=== PATIENT | female | born 1950 | race Caucasian/White ===

== ENCOUNTER 2017-01-09 14:26 | Inpatient (IN) | payer OTHER ==
[~2017-01-09] VITALS: Ht 154.9 cm; Wt 32.0 kg
[2017-01-09] VITALS (7 sets, daily range): BP systolic 141–184; BP diastolic 71–90; PULSE 71–125; RESP 20–28; O2SAT 88–100
--- NOTE | 2017-01-09 14:27 | ED.REPORT ---
HPI-Dyspnea / Wheezing Date of Service Jan 09, 2017 ED Provider: Adarsh Valenzuela MD Pt is a 65 year old female with a history of COPD who presents to the ED via EMS with shortness of breath. She denies pain. Per EMS, the pt's landlord reported that the pt has had her symptoms for 2-3 days. EMS reports that the pt has been resting in her bed when they found her. Per EMS, the pt had inspiratory and expiratory wheeze en route. HPI obtained primary from EMS. Nursing Notes Stated Complaint: COPD EXACERBATION Chief Complaint: Respiratory Distress Nursing Notes Reviewed: Yes General Time Seen by MD: 14:27 Chief Complaint Shortness of breath Hx Obtained From: Patient, EMS Arrived By: Ambulance Sudden in Onset?: No Onset Occurred: 2 days ago Symptom Duration: Since onset Severity: Current: No pain currently Severity: Maximum: No pain Recent Healthcare: No recent doctor visit, No recent hospitalization Past Medical History Past Medical History Reports: COPD Past Surgical History Denies Smoking History Unknown if Ever Smoker Ambulatory Status Independent Review of Systems Respiratory: Reports: Shortness of breath Cardiovascular: Denies: Chest pain Musculoskeletal: Denies: Back pain Complete sys rev & neg: except as marked. GI: Denies: Abdominal pain Physical Exam Initial Vital Signs Vital Signs (First) Date Time Temp Pulse Resp B/P Pulse Ox O2 Delivery O2 Flow Rate FiO2 01/09/17 14:30 125 28 141/71 96 Nasal Cannula Initial VS: Reviewed Head / Eyes: Atraumatic, Normocephalic Extremities: Vascular intact, Neuro intact Skin: Warm, Dry, No cyanosis Neurologic: Alert, Oriented, Nonfocal Psychiatric: Mood/affect normal, Behavior normal General/Constitutional: Awake, Alert Appearance / Presentation: Positive: Cachectic Pt is drowsy. Neck: Atraumatic, Full range of motion Respiratory / Chest: Breath sounds = bilat Diminished breath sounds. No wheezing. Cardiovascular: Regular rhythm, Heart sounds NL, No murmurs Heart Rate / Rhythm: Positive: Tachycardia Abdomen: Atraumatic, Soft, Non-tender Abdomen is tense. Interpretation & Diagnostics Lab Results Interpretation Test 01/09/17 14:35 Re-Eval/Medical Decision Med Decision/Clinical Course Attempting multiple times to talk to this woman about her CODE STATUS is fruitless. All she can safely be alone and do not intubate me. I told her that she would without intubation if she stops breathing and she has no response to this statement. At change of shift I will pass the care to Dr. Solomon in. She has an end-tidal CO2 currently of less than 40 so that is actually much better than I expected. Source of Hx: Old records Re-Evaluation/Progress #1: Time of Eval: 14:45 Re-Evaluation/Progress Note: Pt rechecked. Pt was refusing Bipap and intubation. Spoke with pt regarding her care, but she would not respond. Re-Evaluation/Progress #2: Time of Eval: 14:48 Re-Evaluation/Progress Note: Pt rechecked. Pt states that she doesn't want to be put on a ventilator because she is concerned that she will be stuck on the ventilator chronically. Discussed with pt options of treatment. She states that she wants to be "left alone right now". Pt is requesting to contact her son. Re-Evaluation/Progress #3: Time of Eval: 15:06 Re-Evaluation/Progress Note: Pt rechecked. Pt was talking on the phone with her son. She does not want the bipap. Counseled Regarding: Diagnosis, Lab results Discharge & Departure Shift Change Sign-Out Patient Care Transferred: Yes Discussed Complaint(s): Yes Laboratory Evaluation: Ordered, not yet done Imaging Studies: Ordered, not yet done Impression: Primary Impression: COPD exacerbation Discharge Condition All VS Reviewed: Yes Condition: Stable Referrals: OTHER,PHYSICIAN Care Transferred to: Dr. Leger Care Transferred at: 15:07 Dann Attestation Portions of this note were transcribed by Nyla Malone. I, Dr. Valenzuela personally performed the history, physical exam and medical decision-making; I reviewed and confirmed the accuracy of the information in the transcribed note. Signed by: Dann Adorno, 01/09/17. copies to: OTHER,PHYSICIAN Adarsh Valenzuela MD Jan 09, 2017 14:27 Nyla Armstrong Jan 09, 2017 14:36
[2017-01-09] MEDS ORDERED: Albuterol 2.5 mg/3 mL Inhalation Solution NEB ONE ×2 (14:29→14:30)
[2017-01-09] MEDS ORDERED: MethylprednisoLONE Sodium Succinate 62.5 mg/mL 2 mL Inj ONE (14:45)
[2017-01-09 14:53] LABS: BASOPHILS % (AUTO) 0.1 % (0-3); Mean Corpuscular Volume 99.5 fL (81-100)
[2017-01-09 14:58] LABS: EOSINOPHILS % (AUTO) 0.1 % (0-5); MONOCYTES % (AUTO) 20.9 % (4-12); Mean Corpuscular Hemoglobin 32.3 pg (27.0-35.0); NEUTROPHILS % (AUTO) 69.8 % (40-74); Platelet Count 316 bil/L (150-400)
[2017-01-09] MEDS ORDERED: Magnesium Sulf 2 Gm/50mL Water 2 GM in IV Premix 1 EACH IV ONE (15:20)
[2017-01-09 15:22] LABS: TROPONIN T < 0.010 ug/L (0.0-0.011)
[2017-01-09] MEDS ORDERED: Albuterol-Ipratropium 3 mL Inhalation Solution NEB ONE (15:25)
--- NOTE | 2017-01-09 16:10 | DRSVH ---
PROCEDURE: X-RAY CHEST ONE VIEW, PORTABLE ([id number]) INDICATIONS: dyspnea TECHNIQUE: One view of the chest was acquired. COMPARISON: 05/03/2008 FINDINGS: Surgical changes and devices: Surgical plate lower cervical spine. Surgical clips right upper quadran t.. Lungs and pleura: No pleural effusions or pneumothorax. Lungs are clear. There is severe emphysema. Mediastinum: Mediastinal contours appear normal. Heart size is normal. Bones and chest wall: No suspicious bony lesions. Overlying soft tissues appear unremarkable. IMPRESSION: 1. Severe chronic obstructive pulmonary disease. No acute cardiopulmonary abnormality to suggest aspi ration or pneumonia. Dictated by: Kristian Muñoz M.D. on 01/09/2017 at 16:07 Approved by: Kristian Muñoz M.D. on 01/09/2017 at 16:09
--- NOTE | 2017-01-09 17:19 | ABG ---
DateTimeAnalyzed 17:12:00 -_ pH ____7.269 - 7.350 7.450 pCO2 ___68.9__ -mmHg 35.0 45.0 pO2 ___70.3__ -mmHg 69.0 116 HCO3- ___30.5__ -mmol/L 22.0 26.0 ABE ____2.3__ -mmol/L -2.0 2.0 tHb ___12.4__ -g/dL 12.0 18.0 O2Hb ___90.2__ -% COHb ____0.8__ -% 0.0 1.5 MetHb ____0.8__ -% 0.4 1.5 sO2 ___91.7__ -% FIO2 ___32.0__ -% Drawn By jmw - Date/Time Notified____ 17:19:00 -_ Liter_Flow ____3.0__ -L/min Oxygen Device 1 __CANNULA - Notified By jmw - Notified Whom DR MADHU - B 759 -mmHg tO2 ___15.7__ -Vol% Hernando test _Positive -
[2017-01-09] MEDS ORDERED: Polyethylene Glycol (PEG) 17 Gm Powder PO PRN (17:55)
[2017-01-09] MEDS ORDERED: Alum-Mag Hydrox-Simeth 30 mL Suspension PO PRN (17:55)
[2017-01-09] MEDS ORDERED: PARO40TA3 PO (18:08)
[2017-01-09] MEDS ORDERED: RANI150T11 PO (18:08)
[2017-01-09] MEDS ORDERED: CELE100C85 PO (18:08)
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
[2017-01-09] MEDS ORDERED: ALBU18HF INH (18:16)
[2017-01-09] MEDS ORDERED: IPRA3AMP INH (18:16)
[2017-01-09] MEDS ORDERED: ADV250INH INH (18:16)
[2017-01-09] MEDS: Fluticasone-Salmererol 250-50 Inhaler INHALATION SCH (20:30)
[2017-01-09] MEDS: Albuterol-Ipratropium 3 mL Inhalation Solution NEB SCH (20:37)
[2017-01-09] MEDS: cefTRIAXone Inj 2,000 MG in Dextrose 5% Minibag Plus 50 ML IV SCH (21:10)
[2017-01-09] MEDS: MethylprednisoLONE Sodium Succinate 62.5 mg/mL 2 mL Inj IVPUSH SCH (21:21)
[2017-01-10] VITALS (11 sets, daily range): BP systolic 150–170; BP diastolic 76–77; PULSE 104–128; RESP 17–24; O2SAT 93–98
[2017-01-10] MEDS: Albuterol-Ipratropium 3 mL Inhalation Solution NEB SCH ×5 (00:30→16:30)
[2017-01-10] MEDS: Dextrose 5% 0.9% NaCl 1,000 ML IV SCH ×3 (03:45→22:28)
[2017-01-10] MEDS: MethylprednisoLONE Sodium Succinate 62.5 mg/mL 2 mL Inj IVPUSH SCH ×4 (03:46→22:28)
--- NOTE | 2017-01-10 04:14 | NUR ---
Admit note: Pt was admitted from the ED, total assist with transfer over to bed. Sleepy, does open eyes and answer questions when asked. Alert and oriented, although thought she was in [place] at the hospital. Speech is soft and difficult to understand at times. Breathing labored, on 3L NC. Pt states using 2-3L at home. Receiving neb treatments per RT and Solu Medrol. Reports pain to right rib area, family states this has been an ongoing issue. Diaphoretic, afebrile. Later in the shift, pt has been able to rest more. Pain meds increased from Tylenol, which pt and family states was ineffective, to Oxycodone which has allowed pt to rest more. Family has been in and out visiting pt through the shift.
[2017-01-10 05:30] LABS: BASOPHILS % (AUTO) 0.3 % (0-3); EOSINOPHILS % (AUTO) 0 % (0-5); MONOCYTES % (AUTO) 14.1 % (4-12); Mean Corpuscular Hemoglobin 31.5 pg (27.0-35.0); Mean Corpuscular Volume 98.9 fL (81-100); NEUTROPHILS % (AUTO) 75.4 % (40-74); Platelet Count 290 bil/L (150-400)
[2017-01-10 06:18] LABS: Magnesium 2.4 mg/dL (1.6-2.6)
[2017-01-10] MEDS: cefTRIAXone Inj 2,000 MG in Dextrose 5% Minibag Plus 50 ML IV SCH (06:36)
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
[2017-01-10] MEDS ORDERED: PARoxetine 20 mg Tablet PO SCH (08:30)
[2017-01-10] MEDS ORDERED: Azithromycin Inj 500 MG in Dextrose 5% w/Vial Mate 250 ML IV SCH (08:30)
[2017-01-10] MEDS: Fluticasone-Salmererol 250-50 Inhaler INHALATION SCH ×2 (08:36→21:31)
--- NOTE | 2017-01-10 13:30 | NUR ---
Sitter DCd at 1330. Family at bedside, frequent rounding, side rails up, bed alarm on.
[2017-01-10] MEDS ORDERED: Haloperidol 5 mg/mL Inj IVPUSH PRN (13:40)
[2017-01-10] MEDS ORDERED: Glycopyrrolate 0.2 MG/ML 1mL Inj IVPUSH PRN (13:40)
[2017-01-10] MEDS ORDERED: fentaNYL-PF 50 mCg/mL 2 mL Inj IVPUSH PRN (13:40)
--- NOTE | 2017-01-10 13:49 | PCM.CONPAL ---
Date of Service Jan 10, 2017 Date of Hospital Admission: Jan 09, 2017 at 17:53 Date of Palliative Consult: Jan 10, 2017 Requesting Provider: Kurt Pérez MD Reason Palliative Care Consult: Goals of Care Discussion Hospital Unit @time of consult: Medical/Pediatric Care (room 3004) Palliative Care Recommendation Summary of palliative recommendations: -Symptom management (Pain/other): Dr. Schmitz began end of life care order set after discussing with family. Pt nonverbal, minimally aware. Sons and DIL both agree that mom wanted this. 1. Pain/SOB: using fentanyl infusion as both sons state that mother cannot tolerate morphine or benadryl. Pt is not opiate naive, has used oxycodone frequently in past for chronic pain issues per sons and DIL. 2. Consider adding scopolamine patch in a.m. (I have ordered glycopyrrolate prn in the interim as pt is still intermittently conscious and may still want to be speaking to her sons and scopolamine tends to be sedating and crosses Blood brain barrier, whereas glycopyrrolate does not). -DPOA/Advanced Directives/POLST: 1. Pt nonverbal, minimally aware. Sons and DIL both agree that mom wanted no intubation, no biPAP (which she tried for a while, shortly after admission, but couldn't tolerate). 2. HCPOA is older son, Noble Crockett. Younger son is Dominic. 3. Noble signed a POLST for DNR/DNI, comfort measures only, no antibiotics and no feeding tube. Copies made and placed in chart and given to sons. One copy in PC office. Original green POLST is on paper chart. -Family/emotional support: good Patient Goals: 1. Patient wants to be comfortable and not struggle to breathe. Prognosis: In my clinical opinion, I think this patient is likely to in 48 hours or less. Problems: Resuscitation Status Resuscitation Status: DNR/DNI:Do Not Resuscitate/Intubate POLST Updates/Changes Previous POLST?: No POLST Last Review Date: Jan 10, 2017 Antibiotics: No Antibiotics Artificially Admin Nutrition: No Artifical Nutrition by Tube POLST Discussed with: Health Care Agent (DPOAHC) (son Noble) POLST Review Outcome: New Form Completed . Advanced Care Planning Address: POLST, Code status change, Comfort care Pain: Mild, Moderate Symptom management: Dyspnea, Delirium Pt History History of Present Illness 66 yo WDF with oxygen dependent COPD who is being admitted for shortness of breath. Could not get much history from the patient as she was fatigued, and wanted to be "left alone". As per ER, patient refused intubation as she was worried that she would be stuck intubated for rest of her life. Her DNR/DNI status was confirmed with her son. ABGs noted for acidosis with increased bicarb , indicative of chronic COPD. Patient currently on 3 L Nasal canula, with respiratory rate of about 20s-25. Patient is using her accessory muscles, appears to be fatigued. Subjective: States she wants to be comfortable then moans quietly with each breath. Exam: Initial VS: Reviewed General: very cachetic frail lady, appears older than chronological age Neurologic: Alert, Oriented to person and place. nonfocal HEENT: Atraumatic, Normocephalic, mucus membranes dry, Pupils equal, EOMI Neck: Atraumatic, Full range of motion Resp: Diminshed jimmie, with expiratory wheezing Cardiovascular: tachycardia, Heart sounds NL, No murmurs, Abdomen: Atraumatic, Soft, Non-tender Extremities: no edema Skin: Warm, Dry, No cyanosis Medications Current Medications: Current Medications Methylprednisolone Sodium Succinate 125 mg Q6 IVPUSH Last administered on 08:34; Admin Dose 125 MG; Start 01/09/17 at 20:30 Albuterol/ Ipratropium 3 ml 3 ml Q4 NEB Last administered on 01/10/17 12:22; Admin Dose 3 ML; Start 01/09/17 at 20:30 Azithromycin 500 mg/Dextrose/Water 250 ml @ 250 mls/hr Q24 IV Last administered on 01/10/17 08:33; Admin Dose 250 MLS/HR; Start 01/10/17 at 08:30 Ceftriaxone Sodium/Dextrose/ Water 50 ml @ 100 mls/hr Q12H IV Last administered on 01/10/17 06:36; Admin Dose 100 MLS/HR; Start 01/09/17 at 17:50 ; Stop 01/10/17 at 11:01; Status DC Al Hydrox/Mg Hydrox/Simethicone 30 ml Q6H PRN PO; Start 01/09/17 at 17:55 Senna 17.2 mg BID PRN PO; Start 01/09/17 at 17:55 Polyethylene Glycol 17 gm DAILY PRN PO; Start 01/09/17 at 17:55 Salmeterol Xinafoate/ Fluticasone 1 puff BID INHALATION Last administered on 08:36; Admin Dose 1 PUFF; Start 01/09/17 at 20:30 Paroxetine HCl 40 mg DAILY PO Last administered on 01/10/17 08:36; Admin Dose 40 MG; Start 01/10/17 at 08:30 Famotidine 20 mg 20 mg BID PO Last administered on 01/10/17 08:36; Admin Dose 20 MG; Start 01/09/17 at 20:30 Dextrose/Sodium Chloride 1,000 ml @ 100 mls/hr Q10H IV Last administered on 03:45; Admin Dose 50 MLS/HR; Start 01/09/17 at 18:25 Acetaminophen 650 mg Q6H PRN PO Last administered on 01/09/17 21:20; Admin Dose 650 MG; Start 01/09/17 at 20:10 Oxycodone HCl 5 mg Q4H PRN PO Last administered on 01/10/17 11:16; Admin Dose 5 MG; Start 01/10/17 at 00:10 Heparin Sodium (Porcine) 5000 unit 5,000 unit Q8 SUBQ; Start 01/10/17 at 16:30 Ceftriaxone Sodium/Dextrose/ Water 50 ml @ 100 mls/hr DAILY IV; Start 01/11/17 at 08:30 Scheduled Celecoxib (Celecoxib) 100 Mg Capsule 100 MG PO BID Fluticasone/Salmeterol (Advair 250-50 Diskus) 60 Puff/Inh Disk 1 PUFF INH BID Paroxetine (Paroxetine) 40 Mg Tablet 40 MG PO DAILY Ranitidine (Zantac) 150 Mg Tablet 150 MG PO BID Scheduled PRN Albuterol Sulfate (Ventolin HFA Inhaler) 200 Puff/18 Gm Inhaler 1-2 PUFFS INH q6 hours PRN PRN For Shortness of Breath Ipratropium/Albuterol Sulfate (Iprat-Albut 0.5-3(2.5) mg/3 mL Inhalant Soln) 3 Ml Ampul.neb 3 ML INH q6 hours PRN PRN For Shortness of Breath Time spent Total time 70 minutes; >50% face to face with patient and/or family, providing counselling regarding plans and recommendations, and in care coordination with his/her medical teams. I also spent an additional 30 minutes counseling for advanced care planning with the patient/the patients family/the surrogate decision maker. Tita Schmitz MD Jan 10, 2017 13:48
--- NOTE | 2017-01-10 14:07 | NUR ---
Palliative care note D/A: Palliative care referral kindly received today from Dr. Pérez. Pt with significant COPD, admitted via ED and EMS. Admit notes indicate that pt lives with her grandson and may have also been out of her medications. Grandson name and contact information not known. Pt resides on [address] and per ED notes, pt was sent to hospital by her landlord who called 911 after finding pt in current condition. Pt declined intubation in ED. Pt very SOB in ED and unable to communicate much other than to leave her alone and DNI. ED able to speak to her son and arrive at a DNR/DNI order. Pt son is Noble Allen who lives in [facility] and can be reached at [phone]. Pt sister is also listed as a contact. Raven Pappas and she can be reached at [phone]. Dr. Schmitz has been in to see pt and feels that she is at eol and may while in acute care. Phone call to rush Cortes to discuss above. P: Palliative care to follow. Kay GARCIA, CCM
[2017-01-10] MEDS: fentaNYL-PF 50 mCg/mL 2 mL Inj IVPUSH PRN (15:00)
[2017-01-10] MEDS: Heparin 5,000 Unit/mL Inj SUBQ SCH (16:30)
[2017-01-10] MEDS: fentaNYL 2,500 mCg/250 mL 2,500 MCG in IV Premix 1 EACH IV SCH (16:52)
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
[2017-01-10] MEDS ORDERED: Albuterol-Ipratropium 3 mL Inhalation Solution NEB PRN (17:35)
--- NOTE | 2017-01-10 18:00 | NUR ---
Pain/Respiratory Distress Pt mostly non verbal, confused, able to answer occ questions. Observable and audible respiratory distress and pain with shaking and tremors - FELDT scale 4. Administered PO medication with minimal improvement. Pt changed to comfort care. Started with single dose as IVPush to evaluate pt toleration. Pt tolerated with observable pain decrease. IV Fentanyl started at 1700 at 2.5 mL/hr (starting rate). Checked with charge Sanam Matute/RN. IV bag placed in lock box. Plan per orders to evaluate at 1900. Notes on board. Shortly after IV started, pt started leaning forward in and working self towards edge of bed. Family in room to assist with needs. Monitoring for safety. Bed alarm on.
[2017-01-11] MEDS: Heparin 5,000 Unit/mL Inj SUBQ SCH (00:30)
[2017-01-11] MEDS: MethylprednisoLONE Sodium Succinate 62.5 mg/mL 2 mL Inj IVPUSH SCH (03:34)
[2017-01-11 03:42] VITALS: PULSE 108; RESP 20
[2017-01-11 04:25] VITALS: PULSE 120; RESP 18
[2017-01-11 04:58] VITALS: PULSE 102; RESP 18
--- NOTE | 2017-01-11 05:00 | NUR ---
Comfort: Continuous Fentanyl infusing, pt has appeared comfortable most of the shift. Has had two episodes where she has sat upright in bed, mumbling, incomprehensible. PRN Ativan administered both episodes and pt was able to rest again. Additional Fentanyl administered as a bolus as pt was incontinent of urine and was moaning and pushing back on staff when turning pt; also used massage to relax pt until the medication was effective. Heart rate has been in the 100s-120, RR 18-22, temp 37.4 Ax.
[2017-01-11] MEDS: Dextrose 5% 0.9% NaCl 1,000 ML IV SCH (05:22)
[2017-01-11] MEDS ORDERED: cefTRIAXone Inj 2,000 MG in Dextrose 5% Minibag Plus 50 ML IV SCH (08:30)
[2017-01-11] MEDS: fentaNYL 2,500 mCg/250 mL 2,500 MCG in IV Premix 1 EACH IV SCH (10:41)
[2017-01-11] MEDS: fentaNYL-PF 50 mCg/mL 2 mL Inj IVPUSH PRN ×2 (10:50→14:57)
[2017-01-11 10:58] VITALS: PULSE 126; RESP 20
--- NOTE | 2017-01-11 14:54 | PCM.PALLBR ---
Palliative Care Recommendation Summary of palliative recommendations: -Symptom management (Pain/other): continue comfort/ end of life care order set . Sons and DIL both agree that mom wanted this. Throughout the day, gradually increased pain and comfort meds as needed. 1. Pain/SOB: using fentanyl infusion as both sons state that mother cannot tolerate morphine or benadryl. Pt is not opiate naive, has used oxycodone frequently in past for chronic pain issues per sons and DIL. 2. Added scopolamine patch and other routine comfort meds. -DPOA/Advanced Directives/POLST: 1. Patient slowly declining. Sons and DIL both agree that mom wanted no intubation, no biPAP (which she tried for a while, shortly after admission, but couldn't tolerate). 2. HCPOA is older son, Noble Crockett. Younger son is Dominic. 3. Noble signed a POLST for DNR/DNI, comfort measures only, no antibiotics and no feeding tube. Copies made and placed in chart and given to sons. One copy in PC office. Original green POLST is on paper chart. -Family/emotional support: good Patient Goals: 1. Patient wants to be comfortable and not struggle to breathe. Prognosis: In my clinical opinion, I think this patient is likely to in 48 hours or less. Problems: End of Life Preferences DNR/DNI/comfort Disposition Expected to here. Resuscitation Status Resuscitation Status: DNR/DNI:Do Not Resuscitate/Intubate POLST Updates/Changes Previous POLST?: No POLST Last Review Date: Jan 10, 2017 Antibiotics: No Antibiotics Artificially Admin Nutrition: No Artifical Nutrition by Tube POLST Discussed with: Health Care Agent (DPOAHC) (son Noble) POLST Review Outcome: New Form Completed . Advanced Care Planning Address: Comfort care Pain: Mild Symptom management: Pain, Delirium Total time 65 minutes spread across multiple visits through day; >50% face to face with patient and family, providing counselling regarding plans and recommendations, and in care coordination with her medical teams. All of the above minutes counseling for advanced care planning with the patient' s family, and monitoring/adjusting end of life care and treatments. Palliative Brief Note Date of Service Jan 11, 2017 . Returned to reevaluate patient. Prior to visiting, reviewed her records in the EMR in detail, received signout from previous palliative provider, and spoke with her bedside nurse. On my arrival, she was somnolent and only minimally arousable to moans. Occasional visible grimacing and restlessness. Exam showed a cachectic female. VS noted. Skin cool and dry. Lungs with decreased BS diffusely. Cor rapid and regular. Abd soft. No edema. Talked at length with multiple family members on this and later returns to recheck her (made multiple visits throughout the day). Family all united in wanting purely comfort care, and expectation is that she will here in hospital. Noble Tolbert MD Jan 11, 2017 14:54
--- NOTE | 2017-01-11 16:01 | NUR ---
Social Work-continued d/c planning: Data& assessment: EMR reviewed. Pt is on day 2 of hospitalization for COPD exacerbation per H&P. SW reviewed chart and informed that pt is full comfort care and anticipated to pass in the hospital. SW will continue to follow. Assessment:pt who is on comfort care. Plan:Pt is on comfort care, anticipate pt to pass in the hospital.SW will continue to follow. ABEL Hale
--- NOTE | 2017-01-11 16:08 | NUR ---
Pain /Comfort care: Patients respirations went up to 22 and she was moaning. Per Palliative Care DR patient was given a 50 mcg bolus of Fentanyl and her Fentanyl drip was increased to 50mcg per hour. Addendum: 01/11/17 at 1613 by MICHELLE GARCÍA RN Patient is more comfortable and not moaning in discomfort. Patients family have been at her bedside off and on throughout the day. Patient continues to be on comfort care . Repositioning as needed , frequent rounding continue. Addendum: 01/11/17 at 1630 by MICHELLE GARCÍA RN Ativan 1mg IV was also given for patients continued comfort. Patient was able to regain calm restful state after the Ativan.
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
--- NOTE | 2017-01-11 19:11 | NUR ---
Comfort Pt's respiration appears 29, using accessory muscle and is gasping for air. Fentanyl drip rate increased by 50% as indicated, now on 7.5 mcg/hr. Continuing to monitor. Addendum: 01/12/17 at 0014 by JENNIFER JORDAN RN correction it's 75mcg/hr. Now increased to 100mcg/hr as directed. RR of 28 and hr of 123. Continuing to monitor.
[2017-01-11] MEDS ORDERED: 0.9% Sodium Chloride 250 ML ONE (23:10)
--- NOTE | 2017-01-12 05:41 | NUR ---
Pt 404. Verified with Cb Vance RN. Family was at bedside on times of passing. notified.
--- NOTE | 2017-01-12 09:14 | NUR ---
Social Work-discharge: SW updated that pt has . No other SW needs identified. ABEL Hale
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
== END 2017-01-12 04:05 | disposition expired | DRG 189 ==
LOC: SED 14:26 → MPC 17:53
PROVIDERS: ADMIT Internal Medicine; ATTEND Internal Medicine
DX: J96.20 Acute and chronic respiratory failure, unspecified whether with hypoxia or hypercapnia (principal); J44.1 Chronic obstructive pulmonary disease with (acute) exacerbation; E87.2 Acidosis; E46 Unspecified protein-calorie malnutrition; R64 Cachexia; Z68.1 Body mass index [BMI] 19.9 or less, adult; Z66 Do not resuscitate; Z51.5 Encounter for palliative care; F17.200 Nicotine dependence, unspecified, uncomplicated; Z99.81 Dependence on supplemental oxygen